=== PATIENT | female | born 1950 | race Caucasian/White ===

== ENCOUNTER 2017-01-21 16:47 | Emergency (ER) | payer OTHER ==
[~2017-01-21] VITALS: Ht 165.1 cm; Wt 73.7 kg
[~2017-01-21 16:47] MED LIST: BACLOFEN10 MG PO; DIAZEPAM10 MG PO; ELAVIL50 MG PO; ENDOCET 5-3251 EACH PO; FLEXERIL10 MG PO; GRALISE300 MG PO; LORTAB 5-325 M1 EACH PO; LYRICA50 MG PO; MAGNESIUM CITR100 MG PO; MEDROL DOSEPAK4 MG PO; NEURONTIN300 MG PO; NORCO 5/3251 TABLET PO; OLUX-E 0.05% FO50 GM TP; PRAMIPEXOLE0.125 MG PO; STOOL SOFTENER1 EAC1 PO; STRESS-C WITH1 EACH PO; SUPER B-50 COM1 EACH PO; TYLENOL EXTRA500 MG PO
[2017-01-21 17:21] LABS: HEMATOCRIT 42.4 % (36.0-46.0); MCH 30.1 PG (29.0-34.0); MCHC 33.5 G/DL (30.0-36.0); MEAN PLAT.VOLUME 10.1 uM^3 (9.5-12.4); PLATELET COUNT 245 K/uL (156-360); RBC DIS.WIDTH-CV 11.7 % (11.8-14.6); RBC DIS.WIDTH-SD 38.5 % (39-53); RED BLOOD COUNT 4.71 M/uL (3.80-5.20); WHITE BLOOD COUNT 6.7 K/uL (4.1-10.2)
[2017-01-21 17:34] LABS: CHLORIDE 106 mEq/L (99-109); POTASSIUM 4.2 mEq/L (3.7-5.4); SODIUM 144 mEq/L (136-147)
[2017-01-21 17:36] LABS: GLUCOSE 131 mg/dL (70-99)
[2017-01-21 17:37] LABS: ANION GAP 9 MEQ/L (2-14)
[2017-01-21 17:40] LABS: GFR ESTIMATE (CALCULATED) > 59 mL/min/
[2017-01-21 17:41] LABS: UREA NITROGEN (BUN) 22 mg/dL (9-23)
[2017-01-21 18:15] LABS: ADD MIUA? YES; BILIRUBIN NEGATIVE; BLOOD NEGATIVE; COLOR YELLOW ((YELLOW)); GLUCOSE (STRIP) NEGATIVE; KETONES NEGATIVE; LEUKOCYTES MODERATE; NITRITE NEGATIVE; PROTEIN (STRIP) NEGATIVE; SPECIFIC GRAVITY 1.021 (1.000-1.030)
[2017-01-21 18:17] LABS: TROP-I INTERPRETATION NEGATIVE; TROPONIN-I < 0.01 ng/mL (0.0-0.30)
[2017-01-21 18:24] LABS: BACTERIA RARE /HPF; EPITHELIAL CELLS RARE /HPF; MUCUS TRACE /LPF; RED BLOOD CELLS 0-5 /HPF (0-5); UCUL ADDED? YES
[2017-01-21] MEDS ORDERED: BENTYL10 MG PO (19:12)
[2017-01-21] MEDS ORDERED: ZOFRAN ODT4 MG PO (19:12)
[2017-01-21] MEDS ORDERED: CARAFATE100 MG/ML PO (21:45)
[2017-01-21] MEDS ORDERED: CIPRO250 MG PO (21:45)
[2017-01-21 22:13] VITALS: BP 132/56
== END 2017-01-21 22:14 | disposition home or self-care (01) ==
LOC: EME 16:47
PROVIDERS: Nurse Practitioner Family
DX: R10.13 Epigastric pain (principal); R11.10 Vomiting, unspecified; F41.9 Anxiety disorder, unspecified; K21.9 Gastro-esophageal reflux disease without esophagitis; Z87.442 Personal history of urinary calculi; Z88.0 Allergy status to penicillin; Z88.5 Allergy status to narcotic agent; Z88.6 Allergy status to analgesic agent
CPT/HCPCS: 71020; 80048; 81003; 84484; 85027; 87086; 99281; 99285; J1200; J2060; J2405; J7030